=== PATIENT | male | born 2000 | race Caucasian/White ===

== ENCOUNTER 2020-04-18 14:53 | Emergency (ER) | payer SELFPAY ==
[~2020-04-18] VITALS: Ht 170.2 cm; Wt 72.6 kg
[2020-04-18 15:14] VITALS: BP_SYST 135
[2020-04-18] MEDS ORDERED: LIDOCAINE/EPI 2% 1:100000 20 ML VIAL INJ ONE (16:30)
[2020-04-18] MEDS ORDERED: BACITRACIN 1 GM OINT TP ONE ×2 (16:45→17:07)
[2020-04-18 16:54] VITALS: BP_SYST 135
== END 2020-04-18 16:54 | disposition home or self-care (01) ==
LOC: SED 14:53
DX: S90.821A Blister (nonthermal), right foot, initial encounter (principal); F17.210 Nicotine dependence, cigarettes, uncomplicated; F11.90 Opioid use, unspecified, uncomplicated; X50.0XXA Overexertion from strenuous movement or load, initial encounter; Y93.89 Activity, other specified; Y92.89 Other specified places as the place of occurrence of the external cause; Y99.8 Other external cause status
CPT/HCPCS: 99283

== ENCOUNTER 2020-11-19 05:50 | Emergency (ER) | payer SELFPAY ==
[~2020-11-19] VITALS: Ht 170.2 cm; Wt 68.0 kg
[2020-11-19 05:54] VITALS: BP_SYST 147
[2020-11-19 06:20] VITALS: BP_SYST 147
== END 2020-11-19 06:20 | disposition home or self-care (01) ==
LOC: SED 05:50
DX: Z02.89 Encounter for other administrative examinations (principal); J45.909 Unspecified asthma, uncomplicated; F17.200 Nicotine dependence, unspecified, uncomplicated
CPT/HCPCS: 99283